=== PATIENT | female | born 1995 | race Caucasian/White ===

== ENCOUNTER → 2020-03-10 | Outpatient (CLI) | payer OTHER | LOC: EXRD 08:22 | DX: R10.9 Unspecified abdominal pain (principal) | CPT/HCPCS: 76705 ==

== ENCOUNTER → 2020-08-22 | Outpatient (CLI) | payer OTHER | LOC: EXRD 10:27 | DX: R10.9 Unspecified abdominal pain (principal) | CPT/HCPCS: 76700 ==

== ENCOUNTER → 2020-11-25 | Outpatient (CLI) | payer OTHER | LOC: LAB 11:41 | DX: O20.0 Threatened abortion (principal) | CPT/HCPCS: 36415; 84702 ==

== ENCOUNTER → 2020-11-27 | Outpatient (CLI) | payer OTHER | LOC: LAB 15:31 | DX: Z32.00 Encounter for pregnancy test, result unknown (principal) | CPT/HCPCS: 84702 ==

== ENCOUNTER 2020-12-24 10:55 | Emergency (ER) | payer OTHER ==
[2020-12-24 11:40] LABS: HEMOGLOBIN 14.2 gm/dl (12.3-15.3); RED BLOOD COUNT 4.71 M/UL (4.00-5.10); WHITE BLOOD COUNT 8.2 K/UL (4.5-11.0)
[2020-12-24 12:01] LABS: BUN/CREATININE RATIO 16 (0-10)
[2020-12-24] MEDS ORDERED: CEPHALEXIN500 M1 PO (12:53)
== END 2020-12-24 13:05 | disposition home or self-care (01) ==
LOC: ER1 10:55
PROVIDERS: Emergency Medicine
DX: O21.9 Vomiting of pregnancy, unspecified (principal); O99.611 Diseases of the digestive system complicating pregnancy, first trimester; Z3A.11 11 weeks gestation of pregnancy; O99.891 Other specified diseases and conditions complicating pregnancy; R10.31 Right lower quadrant pain
CPT/HCPCS: 80053; 81001; 83735; 85025; 87086; 96374; 99284; J2765; J7030

== ENCOUNTER 2021-02-12 15:29 | Emergency (ER) | payer OTHER ==
[~2021-02-12 15:29] MED LIST: CEPHALEXIN500 M1 PO
== END 2021-02-12 16:27 | disposition left against medical advice (07) ==
LOC: ER1 15:29
DX: Z53.21 Procedure and treatment not carried out due to patient leaving prior to being seen by health care provider (principal)

== ENCOUNTER → 2021-06-19 | Outpatient (CLI) | payer BC | LOC: GENOP 17:40 | DX: O99.891 Other specified diseases and conditions complicating pregnancy (principal); R10.2 Pelvic and perineal pain; R10.9 Unspecified abdominal pain; M54.9 Dorsalgia, unspecified; Z3A.33 33 weeks gestation of pregnancy | CPT/HCPCS: 82731; G0463 ==

== ENCOUNTER 2021-07-16 16:15 | Inpatient (IN) | payer BC ==
[~2021-07-16] VITALS: Ht 160 cm; Wt 77.1 kg
[2021-07-16 16:49] LABS: HEMOGLOBIN 10.5 gm/dl (12.3-15.3); RED BLOOD COUNT 3.65 M/UL (4.00-5.10)
[2021-07-16] MEDS ORDERED: PRENATAL VITAM1 EAC3 PO (17:56)
[2021-07-17 07:24] LABS: BUN/CREATININE RATIO 8 (0-10)
[2021-07-17] MEDS ORDERED: COLACE100 MG PO (18:08)
[2021-07-17] MEDS ORDERED: FERROUS SULFAT325 MG PO (18:08)
[2021-07-17] MEDS ORDERED: IBUPROFEN600 MG PO (18:08)
[2021-07-18 05:16] LABS: HEMOGLOBIN 9.7 gm/dl (12.3-15.3)
== END 2021-07-19 16:47 | disposition home or self-care (01) | DRG 807 ==
LOC: GENOP 16:15 → OB 16:39
PROVIDERS: Obstetrics & Gynecology; ADMIT Obstetrics & Gynecology
PROC: 10D07Z6 Extraction of Products of Conception, Vacuum, Via Natural or Artificial Opening (ICD-10-PCS; principal; 2021-07-17)
PROC: 10907ZC Drainage of Amniotic Fluid, Therapeutic from Products of Conception, Via Natural or Artificial Opening (ICD-10-PCS; 2021-07-17)
PROC: 0HQ9XZZ Repair Perineum Skin, External Approach (ICD-10-PCS; 2021-07-17)
PROC: 3E033VJ Introduction of Other Hormone into Peripheral Vein, Percutaneous Approach (ICD-10-PCS; 2021-07-17)
PROC: 3E0DXGC Introduction of Other Therapeutic Substance into Mouth and Pharynx, External Approach (ICD-10-PCS; 2021-07-17)
PROC: 10H07YZ Insertion of Other Device into Products of Conception, Via Natural or Artificial Opening (ICD-10-PCS; 2021-07-17)
PROC: 4A1H7CZ Monitoring of Products of Conception, Cardiac Rate, Via Natural or Artificial Opening (ICD-10-PCS; 2021-07-17)
PROC: 10H073Z Insertion of Monitoring Electrode into Products of Conception, Via Natural or Artificial Opening (ICD-10-PCS; 2021-07-17)
DX: O13.4 Gestational [pregnancy-induced] hypertension without significant proteinuria, complicating childbirth (principal); Z37.0 Single live birth; O99.344 Other mental disorders complicating childbirth; F41.9 Anxiety disorder, unspecified; O70.0 First degree perineal laceration during delivery; F90.9 Attention-deficit hyperactivity disorder, unspecified type; F32.A Depression, unspecified; Z3A.37 37 weeks gestation of pregnancy; Z98.890 Other specified postprocedural states; Z82.49 Family history of ischemic heart disease and other diseases of the circulatory system
CPT/HCPCS: 36415; 80053; 81001; 82570; 82800; 83615; 84156; 84550; 85014; 85018; 85025; 90715; J2590